=== PATIENT | female | born 1960 | race Caucasian/White ===

== ENCOUNTER → 2020-10-18 | Outpatient (CLI) | payer OTHER ==
[~2020-10-18] MED LIST: CALCIUM500 MG; L-LYSINE500 M1; LIPITOR 20 MG T20 M1 PO; MAGNESIUM250 M1; VITAMIN B-121000 MC2; VITAMIN D310 MC2; ZINC50 M1; ZOLOFT50 M1 PO; collagen
[2020-10-18 10:23] LABS: URINE BILIRUBIN NEGATIVE (Negative); URINE BLOOD NEGATIVE (Negative); URINE CLARITY CLEAR; URINE COLOR YELLOW; URINE GLUCOSE-RANDOM NEGATIVE (Negative); URINE KETONES NEGATIVE (Negative); URINE LEUKOCYTES-REFLEX NEGATIVE (Negative); URINE NITRITE-REFLEX NEGATIVE (Negative); URINE PROTEIN NEGATIVE (Negative); URINE UROBILINOGEN 0.2 E.U./dl (0.2-1.0)
[2020-10-18 10:25] LABS: ABSOLUTE BASOPHILS 0.1 thou/uL (0.0-0.2); ABSOLUTE EOSINOPHILS 0.4 thou/uL (0.0-0.7); ABSOLUTE LYMPHOCYTES 1.6 thou/uL (0.8-5.3); ABSOLUTE MONOCYTES 0.5 thou/uL (0.0-1.2); ABSOLUTE NEUTROPHILS 2.5 thou/uL (1.6-8.1); BASOPHILS 1.3 %; EOSINOPHILS 8.7 %; HEMATOCRIT 38.6 % (37.0-47.0); HEMOGLOBIN 13.3 gm/dL (12.0-15.0); LYMPHOCYTES 30.5 %; MCH 27.9 pg (26.0-34.0); MCHC 34.4 g/dL (28.0-37.0); MCV 81.1 fL (80.0-100.0); MONOCYTES 10.6 %; MPV 7.5 fl. (7.2-11.1); NUCLEATED RBCS 0 /100WBC; PLATELET COUNT* 274 thou/uL (150-400); POLYS 48.9 %; RBC 4.76 mil/uL (4.20-5.00); WBC 5.1 thou/uL (4.0-11.0)
[2020-10-18 10:36] LABS: PROTIME 10.5 Seconds (9.20-11.50)
[2020-10-18 10:41] LABS: ALBUMIN 4.1 g/dL (3.4-5.0); CALCIUM 8.7 mg/dL (8.5-10.1); CREATININE 0.8 mg/dL (0.6-1.3); POTASSIUM 4.2 mmol/L (3.5-5.1); TOTAL BILIRUBIN 0.6 mg/dL (<0.1-1.0); TOTAL PROTEIN 8.4 g/dL (6.4-8.2)
--- NOTE | 2020-10-18 13:36 | EKG ---
[place] [address] ELECTROCARDIOGRAM REPORT Name: EULOGIO JACOBS Room: [facility]#: [id number] Admission: 10/18/20 Attend Phys: Ever Oneill, Discharge: Date of : 56 Date of Service: 10/18/20 1023 Report #: [id number] THIS REPORT FOR: //name// [facility] Test Date: 2020-10-18 Test Time: 10:23:57 Pat Name: EULOGIO JACOBS Department: Room: Gender: F [employer] Machine Tender: : 1960 Requested By: Ever Oneill Order Number: [id number] Reading MD: Deshawn Hutson Measurements Intervals [place] Rate: 57 P: 26 GA: 118 QRS: 27 QRSD: 86 T: 59 QT: 441 QTc: 430 Interpretive Statements Sinus rhythm Borderline short GA interval No previous ECG available for comparison Electronically Signed On 10-18-2020 13:35:46 CDT by Deshawn Hutson [email or web address] <ELECTRONICALLY SIGNED> By: Deshawn Hutson MD, [facility] 10/18/20 1335 1023 1023 Deshawn Hutson MD, [facility] /EPI
== END ==
LOC: M.LAB 10-11 07:22
PROVIDERS: ATTEND Orthopaedic Surgery
DX: Z01.812 Encounter for preprocedural laboratory examination (principal); Z01.818 Encounter for other preprocedural examination; Z20.822 Contact with and (suspected) exposure to COVID-19

== ENCOUNTER 2020-10-25 07:05 | Observation (INO) | payer OTHER ==
[~2020-10-25] VITALS: Ht 157.5 cm; Wt 62.1 kg
--- NOTE | ~2020-10-25 | OP ---
[address] [address] OPERATIVE REPORT Name: EULOGIO JACOBS Room: [address] [place]#: [id number] Admission: 10/25/20 Attend Phys: Vickie Rodney Discharge: Date of : 56 Report #: [id number] THIS REPORT FOR: cc: FAM - No family physician/PCP FAM - No family physician/PCP Ever Oneill II, DO ~ DATE OF SURGERY: 10/25/2020 PREOPERATIVE DIAGNOSIS: Left hip osteoarthritis. POSTOPERATIVE DIAGNOSIS: Left hip osteoarthritis. PROCEDURE: Left total hip arthroplasty. SURGEON: Ever Oneill II, DO BORDER MEASURER: None. ANESTHESIA: General endotracheal. ESTIMATED BLOOD LOSS: 300 mL. ANTIBIOTICS: Ancef preoperatively. DRAINS: Medium Hemovac. COMPLICATIONS: None. CONDITION: The patient is stable to recovery room. IMPLANTS: Listed in the operative record and progress note. BRIEF HISTORY: The patient was seen in the preop area. Preop H and P was performed. Site was marked, questions were answered. Risks and benefits were discussed with the patient about the surgery, the patient wished to proceed, assuming all risks. DESCRIPTION OF PROCEDURE: The patient was taken to the operative suite, placed supine on the operating table and given appropriate anesthesia. The patient's operative hip was placed in the Horicon table leg pereira and sterilely prepped and draped in the supine position. Surgery began by longitudinal incision over the anterior portion of the hip, this was carried out to subcutaneous tissues. A small hernandez was then made in the tensor fascia that was split along its fibers and retracted laterally. An H capsulotomy was then performed and careful hemostasis was maintained with electrocautery and Aquamantys. The head and neck cutting alignment guide was checked under fluoroscopic [place] [address] OPERATIVE REPORT Name: EULOGIO JACOBSN Room: [address] Tera [place]#: [id number] Admission: 10/25/20 Attend Phys: Vickie Rodney Discharge: Date of : 56 Report #: [id number] cut was made in the head and neck and this was removed. Attention was turned to the acetabulum. Excess labrum was removed. It was then reamed in sequential fashion after appropriate size. This showed excellent bleeding bone, excellent position on fluoroscopic guidance. The acetabular cup was then malleted into position and secured with cancellous screws. Metal liner was then applied. The patient's leg was then rotated and extended in the Horicon table to expose the femur. It was then broached in sequential fashion up to appropriate size. The appropriate neck was then trialed with appropriate head length, which showed to have excellent fit and fill and excellent stability of the hip at all range of motion. These trials were removed. The final stem was then malleted into position and the final head was then malleted into position. It was reduced in appropriate fashion, checked with C-arm for appropriate leg length and showed excellent leg length throughout the exam without evidence of dislocation upon range of motion and shuck testing. Wound was then copiously irrigated. Hemostasis was maintained with electrocautery and Aquamantys. Pain cocktail was injected and a drain was activated. The H capsulotomy was then closed with a 1 Vicryl in [id number] fashion. Tensor fascia was closed with 1 Vicryl in a running fashion. Skin was closed with 2-0 Vicryl and a running 3-0 Monocryl and Dermabond. Sterile dressing applied. The patient transported to recovery room in stable condition. Counts were correct throughout the procedure. By: [id number] Oneill II, DO /nt
[2020-10-25 15:54] VITALS: BP 90/54
--- NOTE | 2020-10-25 15:57 | NUR ---
PT ADMITTED POST OP HIP REPLACEMENT. PT ALERT AND ORIENTED. PT ORIENTED TO ROOM. SPOUSE AT BEDSIDE. FALL RISK PRECAUTIONS IN PLACE.
[2020-10-25 20:06] VITALS: BP 93/52
[2020-10-26 00:20] VITALS: BP 101/48
[2020-10-26 04:25] VITALS: BP 90/48
[2020-10-26 06:21] LABS: HEMATOCRIT 31.1 % (37.0-47.0); HEMATOCRIT 31.5 % (37.0-47.0); HEMOGLOBIN 10.7 gm/dL (12.0-15.0); HEMOGLOBIN 10.8 gm/dL (12.0-15.0); MCH 27.6 pg (26.0-34.0); MCHC 34.4 g/dL (28.0-37.0); MCV 80.3 fL (80.0-100.0); RBC 3.87 mil/uL (4.20-5.00); RDW-CV 15.5 % (10.5-14.5); WBC 9.4 thou/uL (4.0-11.0)
--- NOTE | 2020-10-26 06:29 | NUR ---
PT A&OX4, VSS ON ROOM AIR, IV FLUIDS INFUSING ORDERED, PT UP WITH ASSIST TO BSC, HEMOVAC IN PLACE, PRN PO PAIN MEDS REQUESTED AND GIVEN ORDERED. ASSESSMENTS AND HOURLY ROUNDINGS COMPLETE, WILL CONTINUE TO MONITOR.
[2020-10-26 06:38] LABS: CALCIUM 8.3 mg/dL (8.5-10.1); CREATININE 0.8 mg/dL (0.6-1.3); POTASSIUM 3.9 mmol/L (3.5-5.1)
[2020-10-26] MEDS ORDERED: XARELTO10 MG PO (07:17)
[2020-10-26 07:20] VITALS: BP 97/47
[2020-10-26 08:57] VITALS: BP 97/47
--- NOTE | 2020-10-26 09:06 | NUR ---
CM S/W WITH PT WHO INDICATED SHE LIVES AT HOME WITH HER SPOUSE WHO WAS AT BEDSIDE. PT IS EMPLOYEED AND ACTIVE. PT ASKED ABOUT HANDICAP PARKING PASS. PT WANTS OUTPATIENT THERAPY, PT HASNT DECIDED YET ON COMPANY. PT HAS [facility]ALKER. NO HX WITH HH OR SNF. CM TO SUBMIT ORDERS TO THERAPY COMPANY ONCE PT DECIDES.
--- NOTE | 2020-10-26 09:55 | NUR ---
PT GIVEN DISCHARGE INFORMATION, CARE NOTES, AND PRESCRIPTIONS. IV REMOVED. PT BELONGINGS GATHERED. PT LEFT VIA WHEELCHAIR WITH NURSING STAFF TO HOME WITH OUTPATIENT THERAPY. FALL RISK PRECAUTIONS IN PLACE. HOURLY ROUNDING COMPLETED.
--- NOTE | 2020-10-26 12:50 | NUR ---
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 SHEILA BILLYT
== END 2020-10-26 10:06 | disposition home or self-care (01) ==
LOC: M.TBA 07:05 → M.ORTHSURG 07:22 → M.3W 15:44
PROVIDERS: Internal Medicine; Orthopaedic Surgery; ADMIT Internal Medicine; ATTEND Internal Medicine
DX: M16.12 Unilateral primary osteoarthritis, left hip (principal); E78.5 Hyperlipidemia, unspecified; F32.9 Major depressive disorder, single episode, unspecified; Z79.899 Other long term (current) drug therapy